=== PATIENT | female | born 1985 | race Caucasian/White ===

== ENCOUNTER 2020-04-25 13:34 | Outpatient (CLI) | payer OTHER, SELFPAY ==
--- NOTE | ~2020-04-25 | US_ITS ---
EXAMINATION: US breast RT limited HISTORY: Palpable lump at the 6:00 location of the right breast TECHNIQUE: Limited right breast ultrasound is performed. FINDINGS: There is a 1.4 x 0.6 cm oval, circumscribed, parallel, complex cystic and solid mass at the 6:00 location 2 cm from the nipple with posterior acoustic enhancement and peripheral vascularity co rresponding to the palpable abnormality of concern. In addition, there are multiple cysts at the 6:00 location of the breast which measure up to 9 mm. There appears to be a complex cyst at the 6:30 loca tion near the nipple. IMPRESSION: Probably benign mass such as a complicated cyst or fibroadenoma corresponding to the palpable abnorma lity of concern. Recommend follow-up targeted right breast ultrasound in six months. BI-RADS category 3, probably benign findings. Reviewed, dictated and finalized at location F. IMPRESSION: Probably benign mass such as a complicated cyst or fibroadenoma corresponding t o the palpable abnormality of concern. Recommend follow-up targeted right breas t ultrasound in six months. BI-RADS category 3, probably benign findings.
== END 2020-04-25 13:35 | disposition home or self-care (01) ==
LOC: ANHIMG 13:52
PROVIDERS: PCP Advanced Practice Midwife; Visit Provider Advanced Practice Midwife
DX: N63.10 Unspecified lump in the right breast, unspecified quadrant (principal); N60.01 Solitary cyst of right breast
CPT/HCPCS: 76642

== ENCOUNTER 2022-12-25 12:17 | Emergency (ER) | payer OTHER, SELFPAY ==
[2022-12-25 12:33] VITALS: BP 130/66; PULSE 97; RESP 18; TEMP 36.4; O2SAT 100
--- NOTE | 2022-12-25 12:37 | ED.URI ---
HPI - URI/Sore Throat General Stated Complaint: sorethroat Time Seen by Provider: 12/25/22 12:35 Source: patient Mode of arrival: ambulatory Limitations: no limitations History of Present Illness HPI Narrative: Indu is a 37-year-old female patient presenting to clinic today with complaints of sore throat and cough times 2-3 days. She states that she thinks she may have strep throat. Her daughter had strep throat approximately 1.5 weeks ago. No fever or chills. MD elicited complaint: cough and sore throat Related Data Home Medications Medication Instructions Recorded Confirmed norgestimate 0.25 mg-ethinyl 1 tablet PO DAILY 12/25/22 12/25/22 estradiol 35 mcg tablet (Sprintec (28)) sertraline 50 mg tablet 50 mg PO DAILY 12/25/22 12/25/22 Allergies Allergy/AdvReac Type Severity Reaction Status Date / Time No Known Allergies Allergy Unverified 09/15/17 15:38 Review of Systems Review of Systems: Pertinent positives per HPI. Patient denies any fever, chills, rash, headache, visual changes, dizziness, shortness of breath, chest pain, palpitations, nausea, vomiting, diarrhea, constipation, abdominal pain, or any urinary issues. [facility] Family History Family History Grandparent Family history of glaucoma Family history of throat cancer Father Hypertension Patient's father is in good health Mother Patient's mother is in good health Social History Social History Smoking status: Never smoker Alcohol intake: current Comments At the time of my signature, I reviewed and agree with the nursing past medical, surgical, social, and family history. There is no relevant family history pertinent to the patient complaint. Exam Narrative: General: Well-developed, well nourished, in no apparent distress Head: Normocephalic, atraumatic Eyes: Pupils equally round and reactive to light bilaterally, EOM intact, sclera and conjunctive clear, no discharge, lids normal Ears: TMs intact and clear, ear canals clear, no drainage, grossly hearing normal. Nose: Nares patent, clear discharge, no inflammation, no sinus tenderness. Mouth: Oral pharynx without lesions or masses, good dentition, MMM. Oropharynx red Neck: Supple, trachea midline, no enlargement of anterior or posterior cervical nodes, no thyroid masses or goiter palpable. Cardio: Regular rate and rhythm, s1 and s2 normal, no murmur appreciated. Resp: Clear to auscultation bilaterally, no rhonchi, rales, wheezing or rubs Course Course Emergency Course: Portions of this record may have been created with voice recognition software. Level of Care: Express Care Visit Vital Signs Vital signs: Vital Signs Temperature 36.4 C 12/25/22 12:33 Pulse Rate 97 12/25/22 12:33 Respiratory Rate 18 12/25/22 12:33 Blood Pressure 130/66 12/25/22 12:33 Pulse Oximetry 100 12/25/22 12:33 Oxygen Delivery Room Air 12/25/22 12:33 Temperature 36.4 C 12/25/22 12:33 Pulse Rate 97 12/25/22 12:33 Respiratory Rate 18 12/25/22 12:33 Blood Pressure 130/66 12/25/22 12:33 Pulse Oximetry 100 12/25/22 12:33 Oxygen Delivery Room Air 12/25/22 12:33 Vital signs reviewed MDM - URI/Sore Throat MDM Narrative Medical decision making narrative: At the time of visit patient is resting comfortably on the exam table. COVID strep screen was obtained and were both negative. We will send strep for culture. Supportive measures were discussed with the patient she voiced understanding discharge instructions and agrees to treatment plan. Differential Diagnosis Differential diagnosis: Likely upper respiratory infection, sinusitis, viral infection, bronchitis, influenza, pharyngitis and other (COVID) Lab Data Labs: Strep Screen Presumptive Negative *(Reference Range: Negati
== END 2022-12-25 13:00 | disposition home or self-care (01) ==
PROVIDERS: Emergency Provider Nurse Practitioner Family; PCP Registered Nurse
DX: B34.9 Viral infection, unspecified (principal); J02.9 Acute pharyngitis, unspecified; Z20.822 Contact with and (suspected) exposure to COVID-19; F41.9 Anxiety disorder, unspecified
CPT/HCPCS: 87081; 87426; 87880; 99213; C9803; G0463